=== PATIENT | female | born 1960 | race Caucasian/White ===

== ENCOUNTER → 2021-12-30 | Outpatient (CLI) | payer MEDICARE, OTHER | LOC: HEART 5 12-25 08:00 | DX: I25.10 Atherosclerotic heart disease of native coronary artery without angina pectoris (principal); R06.00 Dyspnea, unspecified; I10 Essential (primary) hypertension; I08.1 Rheumatic disorders of both mitral and tricuspid valves; I27.20 Pulmonary hypertension, unspecified | CPT/HCPCS: 93306 ==

== ENCOUNTER → 2022-01-27 | Outpatient (CLI) | payer MEDICARE, OTHER | LOC: HEART 5 08:45 | DX: I25.10 Atherosclerotic heart disease of native coronary artery without angina pectoris (principal); R06.00 Dyspnea, unspecified | CPT/HCPCS: 78452; A9502; J2785 ==

== ENCOUNTER → 2022-01-29 | Outpatient (CLI) | payer MEDICARE, OTHER | LOC: HEART 5 09:00 | DX: R06.00 Dyspnea, unspecified (principal) | CPT/HCPCS: 94060; 94729 ==